=== PATIENT | female | born 1970 | race Caucasian/White ===

== ENCOUNTER 2025-06-29 07:02 | Day surgery (SDC) | payer BC ==
[2025-06-29] MEDS: Sodium Chloride 0.9% 10 ML Syringe FLUSH PRN (07:56)
== END 2025-06-29 09:40 | disposition home or self-care (01) ==
LOC: KA.SDS 07:02
PROVIDERS: ATTEND Family Medicine
DX: Z12.11 Encounter for screening for malignant neoplasm of colon (principal); Z53.8 Procedure and treatment not carried out for other reasons; I25.10 Atherosclerotic heart disease of native coronary artery without angina pectoris; E11.9 Type 2 diabetes mellitus without complications; E66.9 Obesity, unspecified; F17.210 Nicotine dependence, cigarettes, uncomplicated; Z68.36 Body mass index [BMI] 36.0-36.9, adult; Z79.899 Other long term (current) drug therapy; Z86.0100 Personal history of colon polyps, unspecified
CPT/HCPCS: 36415; 81025; 82947; 84702; 84703; J7030

== ENCOUNTER 2025-08-23 10:09 | Day surgery (SDC) | payer BC ==
[~2025-08-23 10:09] MED LIST: Sodium Chloride 0.9% 10 ML Syringe FLUSH PRN
[2025-08-23] MEDS ORDERED: Propofol 200 MG/20 ML SDV ONE (10:12)
[2025-08-23] MEDS ORDERED: Midazolam 1 MG/ML 2 ML SDV ONE (10:12)
== END 2025-08-23 12:36 | disposition home or self-care (01) ==
LOC: KA.SDS 10:09
PROVIDERS: ATTEND Family Medicine
DX: Z12.11 Encounter for screening for malignant neoplasm of colon (principal); K63.5 Polyp of colon; K64.4 Residual hemorrhoidal skin tags; K57.30 Diverticulosis of large intestine without perforation or abscess without bleeding; I25.10 Atherosclerotic heart disease of native coronary artery without angina pectoris; F41.1 Generalized anxiety disorder; I10 Essential (primary) hypertension; E11.9 Type 2 diabetes mellitus without complications; E66.9 Obesity, unspecified; Z68.35 Body mass index [BMI] 35.0-35.9, adult; Z79.899 Other long term (current) drug therapy
CPT/HCPCS: 00811; 82947; 88305; J2250; J2704; J7030